=== PATIENT | male | born 1955 | race Caucasian/White ===

== ENCOUNTER 2018-04-17 14:38 | Outpatient (CLI) | payer MEDICARE, MEDICAID ==
--- NOTE | 2018-04-17 16:58 | Diagnostic Imaging Report ---
Indication: Mass under the right eyelid Technique: The head was imaged in a 1.5 Jadyn magnet. Sequences obtained include sagittal and axial T1 FLAIR, axial T2 fast spin echo with fat saturation, axial T2 FLAIR, diffusion and ADC map. Gadolinium-enhanced axial and coronal T1 FLAIR obtained also. In addition pre and post axial and coronal T1 fast spin-echo and pre-T2 fast spin echo with fat saturation obtained through the orbits. Comparison: None Findings: MR orbits: No mass identified in the area of the right eyelid. Preseptal soft tissues are normal. Periorbital soft tissues are unremarkable. There is good symmetry. The globes appear symmetric. The retrobulbar fat is normal. The optic nerve appears symmetric. Extraocular muscles appear unremarkable. There is mucosal thickening within the ethmoid sinus mild in degree. MR head: The size, contour, and configuration of the sulci, ventricles, and basal cisterns appear normal. Carney-white differentiation is normal. There is mild T2 hyperintense signal demonstrated within the periventricular white matter, nonspecific but probably due to chronic small vessel disease given the patient's age. There is no restricted diffusion. There is no mass effect, midline shift, edema, or hemorrhage. There are no abnormal extra-axial or intra-axial fluid collections. The corpus callosum is unremarkable. The brainstem and cerebellum are unremarkable. The sella is unremarkable. Bone marrow signal within the visualized osseous structures appears age appropriate and unremarkable otherwise. No abnormal enhancement is identified. Impression: No mass identified in the area of the right eyelid or within the orbit. Periventricular T2 hyperintensity, nonspecific may be due to chronic small vessel disease. Sinusitis
== END 2018-04-17 16:38 | disposition home or self-care (01) ==
LOC: MRI 14:38
DX: R22.0 Localized swelling, mass and lump, head (principal); J32.9 Chronic sinusitis, unspecified
CPT/HCPCS: 70543; 70553; A9585

== ENCOUNTER 2018-10-01 07:32 | Day surgery (SDC) | payer MEDICARE, MEDICAID ==
--- NOTE | 2018-09-30 08:51 | Pre-Procedure Note/Attestation ---
Pre-Procedure Note/Attestation Complete Prior to Procedure Planned Procedure: bilateral Procedure Narrative: 1- Ptosis correction upper lids. 2- Entropion correction upper lids. 3-Blepharoplasty uppers lids. 4-Replacement of lacrimal gland, both eyes. Indications for Procedure Pre-Operative Diagnosis: 1- Blepharoptosis upper lids 2-Entropion upper lids. 3-Blepharochalasis upper lids. 4-Lacrimal gland ptosis, both eyes . Attestation I attest that I discussed the nature of the procedure; its benefits; risks and complications; and alternatives (and the risks and benefits of such alternatives ), prior to the procedure, with the patient (or the patient's legal textile designs sales representative). I attest that, if there was a reasonable possibility of needing a blood transfusion, the patient (or the patient's legal textile designs sales representative) was given the [facility] standardized written summary, pursuant to the Gunnar Jesús Blood Safety Act ([place] Health and Safety Code # 1645, as amended). I attest that I re-evaluated the patient just prior to the surgery and that there has been no change in the patient's H&P, except as documented below: Raul Mosqueda MD Sep 30, 2018 08:51
[~2018-10-01] VITALS: Ht 180.3 cm; Wt 83.9 kg
[2018-10-01] VITALS (8 sets, daily range): BP systolic 123–144; BP diastolic 74–88
[~2018-10-01 07:32] MED LIST: Akten 3.5% 1ml Btl BOTH EYES ONE; JANUVIA100 MG ORAL; KLONOPIN0.5 MG ORAL; LORAZEPAM2 MG ORAL; METFORMIN HCL1000 M2 ORAL; MULTIVITAMINS1 EAC2 ORAL; Maxitrol Opth Oint 3.5gm BOTH EYES ONE; SIMVASTATIN20 MG ORAL; TRAZODONE HCL150 MG ORAL
--- NOTE | 2018-10-01 08:11 | Anethesia Preoperative Eval ---
Anesthesia Pre-op PMH/ROS General Date of Evaluation: Oct 01, 2018 Time of Evaluation: 08:07 Anesthesiologist: sharifa ASA Score: ASA 3 Mallampati Score Class I : Soft palate, uvula, fauces, pillars visible Class II: Soft palate, uvula, fauces visible Class III: Soft palate, base of uvula visible Class IV: Only hard plate visible Mallampati Classification: Class II Surgeon: malcolm Diagnosis: blepharoptosis, bilateral Surgical Procedure: upper blepharoplasty, bilateral Anesthesia History: none Social History: smoking - former Family History: no anesthesia problems Allergies: Coded Allergies: No Known Allergies (Unverified , 09/30/18) Medications: see eMAR Patient NPO?: Yes Past Medical History Cardiovascular: Reports: other - hypercholesterolemia Gastrointestinal/Genitourinary: Reports: GERD Endocrine: Reports: DM HEENT: Reports: cataract (L), cataract (R) Musculoskeletal/Integumentary: Reports: other - back injury,back pain PSxH Narrative: cataract sx Anesthesia Pre-op Phys. Exam Physician Exam Last Vital Signs Date Time Temp Pulse Resp B/P (MAP) Pulse Ox O2 Delivery O2 Flow Rate FiO2 10/01/18 08:10 97.9 58 20 123/74 95 Room Air Constitutional: NAD Neurologic: CN 2-12 intact Cardiovascular: RRR Respiratory: CTA Gastrointestinal: S/NT/ND Airway Exam Mallampati Score: Class II MO: full Neck: flexible TMD: 2fb ROM: full Dentures: upper, lower Anesthesia Pre-op A/P Labs Labs Test 10/01/18 08:15 White Blood Count 7.2 K/UL (4.8-10.8) Red Blood Count 4.64 M/UL (4.70-6.10) Hemoglobin 13.9 G/DL (14.2-18.0) Hematocrit 41.1 % (42.0-52.0) Mean Corpuscular Volume 89 FL (80-99) Mean Corpuscular Hemoglobin 29.9 PG (27.0-31.0) Mean Corpuscular Hemoglobin Concent 33.7 G/DL (32.0-36.0) Red Cell Distribution Width 11.7 % (11.6-14.8) Platelet Count 272 K/UL (150-450) Mean Platelet Volume 6.1 FL (6.5-10.1) Neutrophils (%) (Auto) 61.2 % (45.0-75.0) Lymphocytes (%) (Auto) 25.0 % (20.0-45.0) Monocytes (%) (Auto) 11.4 % (1.0-10.0) Eosinophils (%) (Auto) 1.5 % (0.0-3.0) Basophils (%) (Auto) 0.9 % (0.0-2.0) Prothrombin Time 10.4 SEC (9.30-11.50) Prothromb Time International Ratio 1.0 (0.9-1.1) Activated Partial Thromboplast Time 24 SEC (23-33) Sodium Level 137 MMOL/L (136-145) Potassium Level 4.6 MMOL/L (3.5-5.1) Chloride Level 105 MMOL/L (98-107) Carbon Dioxide Level 26 MMOL/L (21-32) Anion Gap 6 mmol/L (5-15) Blood Urea Nitrogen 17 mg/dL (7-18) Creatinine 0.9 MG/DL (0.55-1.30) Estimat Glomerular Filtration Rate > 60 mL/min (>60) Glucose Level 182 MG/DL (74-106) Calcium Level 9.0 MG/DL (8.5-10.1) Risk Assessment & Plan Assessment: asa3 Plan: mac Status Change Before Surgery: No Pre-Antibiotics Drug: Blanca Kelly MD Oct 01, 2018 08:11
[2018-10-01] MEDS ORDERED: fentaNYL 100 mcg/2 mL IV PRN (08:15)
[2018-10-01] MEDS ORDERED: DiphenhydrAMINE 50mg/ml Inj IVP PRN (08:15)
[2018-10-01] MEDS ORDERED: Midazolam 2mg/2ml Inj IVP PRN (08:15)
[2018-10-01] MEDS ORDERED: Atropine Inj 1mg/10ml Syr IV PRN (08:15)
[2018-10-01] MEDS ORDERED: PANTOPRAZOLE SO40 MG ORAL (08:23)
[2018-10-01] MEDS ORDERED: GLIPIZIDE5 MG ORAL (08:23)
[2018-10-01] MEDS ORDERED: [UNRECOGNIZED DRUG - OTHER] PO (08:23)
[2018-10-01] MEDS ORDERED: VITAMIN K240 MCG PO (08:23)
[2018-10-01] MEDS ORDERED: TAMSULOSIN HCL0.4 MG ORAL (08:23)
[2018-10-01] MEDS ORDERED: DIABETES HEALT1 EAC2 PO (08:23)
[2018-10-01] MEDS ORDERED: SUPER B COMPLE150 MG PO (08:23)
[2018-10-01] MEDS ORDERED: ATORVASTATIN CA20 MG ORAL (08:23)
[2018-10-01 08:33] LABS: BASOPHILS % (AUTO) 0.9 % (0.0-2.0); EOSINOPHILS % (AUTO) 1.5 % (0.0-3.0); HEMATOCRIT 41.1 % (42.0-52.0); HEMOGLOBIN 13.9 G/DL (14.2-18.0); MEAN CORPUSCULAR VOLUME 89 FL (80-99); MONOCYTES % (AUTO) 11.4 % (1.0-10.0); NEUTROPHILS % (AUTO) 61.2 % (45.0-75.0); PLATELET COUNT 272 K/UL (150-450); RED BLOOD COUNT 4.64 M/UL (4.70-6.10); RED CELL DISTRIBUTION WIDTH 11.7 % (11.6-14.8); WHITE BLOOD COUNT 7.2 K/UL (4.8-10.8)
[2018-10-01] MEDS ORDERED: Akten 3.5% 1ml Btl ONE (08:34)
[2018-10-01 08:52] LABS: ANION GAP 6 mmol/L (5-15); BLOOD UREA NITROGEN 17 mg/dL (7-18); CARBON DIOXIDE 26 MMOL/L (21-32); CHLORIDE 105 MMOL/L (98-107); CREATININE 0.9 MG/DL (0.55-1.30); POTASSIUM 4.6 MMOL/L (3.5-5.1); SODIUM 137 MMOL/L (136-145)
[2018-10-01] MEDS ORDERED: fentaNYL 100 mcg/2 mL IV ONE (09:50)
[2018-10-01] MEDS ORDERED: NS Irrig 1000ml ONE (09:50)
[2018-10-01] MEDS ORDERED: Midazolam 2mg/2ml Inj ONE (09:50)
[2018-10-01] MEDS ORDERED: LR 1000ml ONE (09:50)
[2018-10-01] MEDS ORDERED: Sterile Water Irrig 1000ml IRRIG ONE (09:50)
[2018-10-01] MEDS ORDERED: Lidocaine 2% 20mg/ml/Epi 0.005mg/ml 20ml vial ONE (09:51)
[2018-10-01] MEDS ORDERED: Bupivacaine 0.75% 30ml vial INJ ONE (09:51)
[2018-10-01] MEDS ORDERED: Povidone-Iodine 5% opth solution ONE (09:52)
[2018-10-01] MEDS ORDERED: Tetracaine 0.5% Opth 4ml Soln ONE (09:57)
[2018-10-01] MEDS ORDERED: Maxitrol Opth Oint 3.5gm ONE (11:49)
--- NOTE | 2018-10-01 12:12 | Brief Operative Note ---
Immediate Post Operative Note Operative Note Chief Complaint: Blurry vision, difficulty driving plus orbital mass in both eyes Pre-op Diagnosis: 1- Blepharoptosis upper lids 2-Entropion upper lids. 3-Blepharochalasis upper lids. 4-Lacrimal gland ptosis, both eyes . Procedure: 1- Orbital mass removal, OU 2- Ptosis correction, upper lids 3- Entropion correction, upper lids 4- Blepharoplasty, upper lids Post-op Diagnosis: same as pre-op Surgeon: Raul Mosqueda MD Aquaculture Farm Manager: None Additional Surgeons: None Anesthesiologist: Dr. frias Anesthesia: local, MAC Specimen: yes Complications: none Condition: stable Fluids: 600ml Estimated Blood Loss: minimal Drains: none Implant(s) used?: No Raul Mosqueda MD Oct 01, 2018 12:12
--- NOTE | 2018-10-01 12:16 | Discharge Summary ---
Discharge Summary Discharge Summary Discharge Summary DATE OF ADMISSION: 10/01/2018 DATE OF DISCHARGE: 10/01/2018 REASON FOR HOSPITALIZATION: 1- Orbital mass OU 2- Ptosis OU 3- Entropion, upper lids 4- dermatochalasis OU SURGERY PERFORMED: 1- Orbital tumor removal Bilaterally 2- Ptosis correction upper lids 3- Entropion correction, upper lids 4- Blepharoplasty upper lids CONDITION IN THE HOSPITAL:The patient tolerated the surgery without complications. DISCHARGE CONDITION: The patient was stable at discharge. DISCHARGE MEDICATIONS: 1. Vigamox eye drops one drop q.i.d, 2. Prednisolone one drop q.i.d, 3. Keflex 500mg q8h 4- Maxitrol eye ointment apply to lids qhs OU POSTOPERATIVE ORDERS: The patient has to rest at home. No bending, No lifting, No watching Television tonight. POSTOPERATIVE FOLLOW UP: The patient will be followed in my office tomorrow morning at 7 o'clock. Raul Mosqueda MD Oct 01, 2018 12:16
--- NOTE | 2018-10-01 12:24 | Immediate Post-Op Evaluation ---
Immediate Post-Op Evalulation Immediate Post-Op Evalulation Procedure: bilateral blepharoplasty, removal of orbital mass bilateral Date of Evaluation: Oct 01, 2018 Time of Evaluation: 12:17 IV Fluids: 650ml lr Blood Products: none Estimated Blood Loss: negligible Blood Pressure Systolic: 136 Blood Pressure Diastolic: 88 Pulse Rate: 65 Respiratory Rate: 18 O2 Sat by Pulse Oximetry: 98 Temperature (Fahrenheit): 97.8 Pain Score (1-10): 0 Nausea: No Vomiting: No Complications none Patient Status: awake, reacts, patent Hydration Status: adequate Drug: Blanca Kelly MD Oct 01, 2018 12:24
--- NOTE | 2018-10-01 12:25 | 48 Hour Post Anesthesia Eval ---
Post Anesthesia Evaluation Procedure: bilateral blepharoplasty, removal of orbital mass bilateral Date of Evaluation: Oct 01, 2018 Time of Evaluation: 12:24 Blood Pressure Systolic: 128 0: 76 Pulse Rate: 74 Respiratory Rate: 18 Temperature (Fahrenheit): 97.8 O2 Sat by Pulse Oximetry: 98 Airway: patent Nausea: No Vomiting: No Pain Intensity: 0 Hydration Status: adequate Cardiopulmonary Status: stable Mental Status/LOC: patient returned to baseline Post-Anesthesia Complications: none Follow-up care needed: N/A Blanca Gaines MD Oct 01, 2018 12:25
[2018-10-01] MEDS ORDERED: Maxitrol Opth Oint 3.5gm BOTH EYES ONE (12:45)
--- NOTE | 2018-10-02 18:07 | Cardiology Report ---
APPROVED REPORT EKG Measurement Heart [id number] Normal sinus rhythm Normal ECG
--- NOTE | 2018-10-03 08:59 | Operative Note - Dictated ---
DATE OF OPERATION: 10/01/2018 SURGEON: Raul Mosqueda M.D. AIR CONDITIONING ENGINEER: None. ANESTHESIOLOGIST: Blanca Muñoz M.D. ANESTHESIA: Monitored anesthesia care with local anesthesia with lidocaine 2% with epinephrine 1:100,000 plus Marcaine 0.75% 50/50. PREOPERATIVE DIAGNOSES: 1. 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 2. Ptosis, upper lids both eyes. 3. Entropion, upper lids both eyes. 4. Dermatochalasis and blepharochalasis in the upper lids both eyes. POSTOPERATIVE DIAGNOSES: 1. 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 2. Ptosis, upper lids both eyes. 3. Entropion, upper lids both eyes. 4. Dermatochalasis and blepharochalasis in the upper lids both eyes. PROCEDURE PERFORMED: 1. Orbital mass removal, both eyes. 2. Ptosis correction, upper lids both eyes. 3. Entropion correction, upper lids both eyes. 4. Blepharoplasty, upper lids both eyes. INDICATION FOR SURGERY: The patient is a 62-year-old gentleman with history of diabetes mellitus type 2, GERD, depression, insomnia, and sleep apnea. He had been taking medications including Januvia, metformin, atorvastatin, trazodone, clonazepam, and aspirin. The patient is a smoker, but he is not a drinker. He is not allergic to any medications. He has had cataract surgery in both eyes and he is happy with the result. Now, he is complaining of 2 masses, 1 in the right eye and 1 in the left eye. It is projecting under the upper eyelid and also he is complaining of blurry vision and difficulty driving. He has possibly orbital mass in both eyes and he is suffering from severe blepharochalasis with ptosis and entropion in the upper lid bilaterally. This is a progressive dermatochalasis skin disease with resulting change of corneal curvature which induces astigmatism and covers the visual axis, which is the reason for interruption for driving. The severity of the patient's dermatochalasis, entropion, and orbital mass demonstrated on the enclosed photos and the patient's visual diaz as well. The only solution for this patient is correction of all the disfigurement and anatomy changes with surgery. There is no other alternatives for that. INFORMED CONSENT: The nature of the surgery, risks, benefits, alternatives, and potential complications were explained in detail to the patient in his language, Farsi. He voiced understanding. The potential complications including, but not limited to bleeding, infection, corneal exposure, overcorrection, undercorrection, ecchymosis, swelling of the face, hematoma, particularly hematoma of the orbit, dry eye syndrome, loss of eyelashes, loss of eyebrows, inequality of both eyes, change in vision, even loss of vision, loss of the eye, and also were explained in detail to the patient, who voiced understanding and accepted all the complications. Then, he signed the consent form, which is in the chart. DESCRIPTION OF SURGERY AND FINDINGS: Following that, the patient was taken to the operation room in a stable condition. Lidocaine gel, Akten 3.5% were applied to the conjunctivae of both eyes. Following that, the upper eyelids were marked with a marking pen 10 mm above the root of the eyelashes and 15 mm below the lower part of the eyebrows. About 25 mm of the skin was left to facilitate eye closure. IV sedation was given by the anesthesiologist, Dr. Muñoz. After adequate anesthesia and sedation has been achieved, the upper eyelids, eyebrows, and orbit were all anesthetized with 2% lidocaine with epinephrine and Marcaine mixed 50/50. Following that, using a Bovie knife, the skin and subdermal tissue were dissected from the orbicularis oculi muscle and excised. A narrow cut was made into the orbicularis oculi muscle. Hemostasis was performed. The fat compartments were released. The fat compartments were sculptured conservatively. Following that, the orbital mass in the superior temporal part of the orbit was removed. That was lacrimal gland ptosis, which was replaced and repositioned and with a 5-0 nylon, the mass was fixed to the frontal bone. Following that, levator palpebrae superioris muscle were dissected. Aponeurosis of the muscle and aponeurosis of the muscle was tacked about 6 mm and stitched with 6-0 Vicryl. The sutures were trimmed and hemostasis was performed. Following that, a wedge groove was made 3 mm above the root of the upper eyelid lashes. Following that, the tarsal material inside the groove was excised with Vannas scissors. The lips of the groove were stitched with 6-0 Vicryl and the stitches were trimmed and hemostasis was performed. At the end of the procedure, the orbicularis oculi muscles were stitched with 6-0 Vicryl superior than hematoma. Following that, the skin was stitched with 6-0 Vicryl in the fashion of continuous running. At the end of the surgery, Maxitrol eye ointment was applied to the wound and inside eye. Following that, the patient was then transferred to the recovery room. In the recovery room, cold compress were applied to the area. The wound was checked for bleeding. There was no bleeding. Postoperative orders and directions were given to the patient. The patient will be discharged home upon stabilization. The patient will be followed in my office tomorrow morning. Addendum: The surgery on the left eye was exactly copy of the surgery on the right eye. So, both eyes underwent surgeries. Raul Mosqueda M.D. DR: ROXANE JOB#: [id number] CC: [email or web address]
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
== END 2018-10-01 13:55 | disposition home or self-care (01) ==
LOC: SUR 07:32
DX: H02.403 Unspecified ptosis of bilateral eyelids (principal); H02.034 Senile entropion of left upper eyelid; H02.031 Senile entropion of right upper eyelid; H02.834 Dermatochalasis of left upper eyelid; H02.831 Dermatochalasis of right upper eyelid; D17.79 Benign lipomatous neoplasm of other sites; E11.9 Type 2 diabetes mellitus without complications; K21.9 Gastro-esophageal reflux disease without esophagitis; N40.0 Benign prostatic hyperplasia without lower urinary tract symptoms; F41.9 Anxiety disorder, unspecified; F32.9 Major depressive disorder, single episode, unspecified; F17.200 Nicotine dependence, unspecified, uncomplicated; Z79.84 Long term (current) use of oral hypoglycemic drugs; Z79.82 Long term (current) use of aspirin
CPT/HCPCS: 15823; 36415; 67412; 67924; 80048; 82962; 85025; 85610; 85730; 93005; J2250; J3010; J3490; 94003; 94150